=== PATIENT | male | born 1950 | race Caucasian/White ===

== ENCOUNTER 2018-08-17 07:47 | Outpatient (CLI) | payer BC ==
--- NOTE | 2018-08-17 09:26 | MRI ---
CERVICAL SPINE MRI NONCONTRAST: INDICATIONS: Cervical spondylosis. FINDINGS: There is patient motion, limiting assessment. A mild generalized marrow heterogeneity favors a degen erative process. No evidence of acute compression fracture or subluxation. C1-C2: No high grade central canal stenosis at C1-C2. C2-C3: There is mild narrowing of the central canal. Mild left foraminal narrowing is present. The right neural foramen is patent. C3-C4: There is a right asymmetric disk osteophyte. Mild bilateral neural foraminal narrowing is pr esent, and there is slight effacement of the ventral thecal sac. C4-C5: There is a broad-based disk osteophyte, asymmetric to the right, with mild to moderate narrow ing of the right subarticular zone and associated cord effacement, ventrally. There is moderate righ t and mild to moderate left foraminal narrowing. C5-C6: There is a broad-based disk osteophyte with mild ventral cord effacement and mild central can al stenosis. There is moderate bilateral neural foraminal stenosis. C6-C7: Left asymmetric disk osteophyte complex is present with mild left foraminal narrowing. There is also mild effacement of the ventral left hemicord with crowding of the left C7 nerve root. C7-T1: There is no high grade central canal or neural foraminal stenosis. IMPRESSION: Multilevel degenerative change of the cervical spine, as outlined above. POS: JOY
== END 2018-08-17 07:48 | disposition home or self-care (01) ==
LOC: TBSIIMAG 07:47
PROVIDERS: ATTEND Neurological Surgery
DX: M47.812 Spondylosis without myelopathy or radiculopathy, cervical region (principal)
CPT/HCPCS: 72141